=== PATIENT | female | born 1985 | race African-American/Black ===

== ENCOUNTER 2024-01-21 05:57 | Emergency (ER) | payer MEDICAID, OTHER ==
[2024-01-21] MEDS ORDERED: Ketorolac Tromethamine 30 MG (1 mL) VIAL ONE (06:25)
== END 2024-01-21 06:49 | disposition home or self-care (01) ==
LOC: ERS 05:57
DX: K08.89 Other specified disorders of teeth and supporting structures (principal); F17.290 Nicotine dependence, other tobacco product, uncomplicated
CPT/HCPCS: 96372; 99282; J1885

== ENCOUNTER 2024-01-24 22:27 | Emergency (ER) | payer OTHER ==
[2024-01-24] MEDS ORDERED: Ketorolac Tromethamine 30 MG (1 mL) VIAL ONE (23:03)
[2024-01-24] MEDS ORDERED: Acetaminophen/Codeine 30-300mg Tablet ONE (23:04)
== END 2024-01-24 23:47 | disposition home or self-care (01) ==
LOC: ERS 22:27
DX: K08.89 Other specified disorders of teeth and supporting structures (principal); F17.290 Nicotine dependence, other tobacco product, uncomplicated; K02.9 Dental caries, unspecified
CPT/HCPCS: 96372; 99282; J1885